=== PATIENT | female | born 1945 | race Caucasian/White ===

== ENCOUNTER 2017-11-28 08:02 | Outpatient (CLI) | payer MEDICARE, OTHER ==
[2015-09-04 16:51] VITALS: BP 124/76
[2017-11-28 08:42] LABS: BASOPHILS % 0.7 (0.0-1.5); EOSINOPHILS % 7.3 % (0.0-6.8); MEAN CORPUSCULAR HEMOGLOBIN 30.3 pg (28.0-34.0); MEAN CORPUSCULAR VOLUME 93.5 fl (80.0-100.0); MONOCYTES % 5.1 % (0.0-11.0); NEUTROPHILS # 3.7 # k/uL (1.4-7.7)
[2017-11-28 16:41] LABS: TOTAL PROTEIN 6.5 g/dL (6.0-8.5)
== END 2017-11-28 08:05 ==
LOC: LAB 08:02
PROVIDERS: ATTEND Pediatrics
DX: R53.83 Other fatigue (principal); I10 Essential (primary) hypertension; E78.1 Pure hyperglyceridemia; Z11.59 Encounter for screening for other viral diseases
CPT/HCPCS: 36415; 80053; 80061; 84443; 85025; 87522

== ENCOUNTER 2019-03-07 07:59 | Outpatient (CLI) | payer MEDICARE, OTHER ==
[2015-09-04 16:51] VITALS: BP 124/76
[2019-03-07 08:17] LABS: BASOPHILS % 0.5 % (0.0-1.5); NEUTROPHILS # 3.4 # k/uL (1.4-7.7)
[2019-03-07 09:37] LABS: eGFR (Non-African) > 60
[2019-03-07 09:38] LABS: HDL 45 mg/dL (>40)
== END 2019-03-07 08:03 ==
LOC: LAB 07:59
PROVIDERS: ATTEND Internal Medicine
DX: E66.9 Obesity, unspecified (principal); K21.9 Gastro-esophageal reflux disease without esophagitis; Z68.31 Body mass index [BMI] 31.0-31.9, adult
CPT/HCPCS: 36415; 80053; 80061; 84443; 85025